=== PATIENT | female | born 1950 | race Caucasian/White ===

== ENCOUNTER → 2017-04-04 | Outpatient (CLI) | payer OTHER ==
[~2017-04-04] MED LIST: Ambien PO; CELEBREX200 MG PO; CELEXA10 M1 PO; Citracal Maximum (Ca PO; Ditropan XL PO; KAPIDEX60 MG PO; LISINOPRIL5 MG PO; Levothroid,Synthroid PO; NORCO 5/3251 TABLET PO; OMEPRAZOLE40 M1 PO; PREMARIN0.625 MG PO; REGLAN10 MG; VITAMIN C WIT1000 MG PO; ValTRex PO; Xanax PO; Zocor PO; celeXA PO
== END | disposition home or self-care (01) ==
DX: M17.11 Unilateral primary osteoarthritis, right knee (principal); R26.2 Difficulty in walking, not elsewhere classified; M25.561 Pain in right knee; M25.661 Stiffness of right knee, not elsewhere classified; M62.81 Muscle weakness (generalized)
CPT/HCPCS: 97110 GP; 97150 GO; 97161 GP; 97165 GO; G8978 GP; G8979 GP; G8980 GP; G8987 GO; G8988 GO; G8989 GO

== ENCOUNTER 2017-05-07 22:05 | Inpatient (IN) | payer OTHER ==
[~2017-05-07] VITALS: Ht 162.6 cm; Wt 76.5 kg
[~2017-05-07 22:05] MED LIST changes: +DIOVAN HCT 81 TABLET PO; +DITROPAN XL15 MG PO; +ESTRACE1 MG PO; +IRON325 M1 PO; +ONE DAILY WOME1 EACH PO; +SYNTHROID25 MCG PO; +VALTREX50 MG/ML PO; +VITAMIN D31000 UNI2 PO; +XANAX0.5 MG PO; +ZOCOR40 MG PO
[2017-05-08 07:13] VITALS: BP 133/66
[2017-05-08 12:40] VITALS: BP 136/64
[2017-05-08 12:44] LABS: HEMATOCRIT 36.3 % (36.0-46.0); MCH 29.5 PG (29.0-34.0); MCHC 33.3 G/DL (30.0-36.0); MCV 88.5 FL (83-99); MEAN PLAT.VOLUME 10.4 uM^3 (9.5-12.4); PLATELET COUNT 169 K/uL (156-360); RBC DIS.WIDTH-CV 12.4 % (11.8-14.6); RBC DIS.WIDTH-SD 40.4 % (39-53)
[2017-05-08 12:49] VITALS: BP 136/64
[2017-05-08 16:09] VITALS: BP 130/59
[2017-05-08 20:13] VITALS: BP 147/65
[2017-05-08 23:19] VITALS: BP 141/63
[2017-05-09 07:26] LABS: HEMATOCRIT 34.2 % (36.0-46.0); MCV 87.5 FL (83-99)
[2017-05-09 07:48] LABS: ANION GAP 12 MEQ/L (2-14); CHLORIDE 101 MEQ/L (99-109); GFR ESTIMATE (CALCULATED) > 59 mL/min/; GLUCOSE 129 mg/dL (70-99); POTASSIUM 3.2 MEQ/L (3.7-5.4); SAMPLE HEMOLYSIS CHECK 0; SAMPLE ICTERIC CHECK 0; SAMPLE LIPEMIA CHECK 0; SODIUM 138 MEQ/L (136-147); UREA NITROGEN (BUN) 9 mg/dL (9-23)
[2017-05-09 08:43] VITALS: BP 145/69
[2017-05-09 16:50] VITALS: BP 140/63
[2017-05-09 23:20] VITALS: BP 136/62
[2017-05-10 07:00] LABS: HEMATOCRIT 33.6 % (36.0-46.0); MCV 86.4 FL (83-99)
[2017-05-10 07:34] LABS: ANION GAP 9 MEQ/L (2-14); CHLORIDE 100 MEQ/L (99-109); GFR ESTIMATE (CALCULATED) > 59 mL/min/; GLUCOSE 113 mg/dL (70-99); POTASSIUM 3.2 MEQ/L (3.7-5.4); SAMPLE HEMOLYSIS CHECK 0; SAMPLE ICTERIC CHECK 0; SAMPLE LIPEMIA CHECK 0; SODIUM 138 MEQ/L (136-147); UREA NITROGEN (BUN) 8 mg/dL (9-23)
[2017-05-10 08:04] VITALS: BP 148/69
[2017-05-10 15:46] VITALS: BP 133/62
[2017-05-10 23:34] VITALS: BP 142/65
[2017-05-11 08:04] VITALS: BP 112/52
[2017-05-11] MEDS ORDERED: DOCUSATE SODIU100 MG PO (09:15)
[2017-05-11] MEDS ORDERED: LORCET 5-325 M1 EACH PO (09:16)
[2017-05-11] MEDS ORDERED: LOVENOX40 MG/0.4 SC (09:16)
[2017-05-11 10:44] LABS: ANION GAP 5 MEQ/L (2-14); CHLORIDE 102 MEQ/L (99-109); GFR ESTIMATE (CALCULATED) > 59 mL/min/; GLUCOSE 107 mg/dL (70-99); SAMPLE HEMOLYSIS CHECK 0; SAMPLE ICTERIC CHECK 0; SAMPLE LIPEMIA CHECK 0; SODIUM 140 MEQ/L (136-147); UREA NITROGEN (BUN) 13 mg/dL (9-23)
[2017-05-11 10:45] LABS: POTASSIUM 3.9 MEQ/L (3.7-5.4)
== END 2017-05-11 13:17 | DRG 470 ==
LOC: ENRESERV 22:05 → 2SOUTH 05-08 06:44 → 3EAST 05-08 06:44 → 2SOUTH 05-08 08:10 → ENRESERV 05-08 09:17 → 3EAST 05-08 12:35 → 2SOUTH 05-08 14:58 → 3EAST 05-11 13:17
PROVIDERS: Orthopaedic Surgery; Physician Assistant
PROC: 0SRC0J9 Replacement of Right Knee Joint with Synthetic Substitute, Cemented, Open Approach (ICD-10-PCS; principal; 2017-05-08)
DX: M17.11 Unilateral primary osteoarthritis, right knee (principal); F33.9 Major depressive disorder, recurrent, unspecified; R32 Unspecified urinary incontinence; I10 Essential (primary) hypertension; E03.9 Hypothyroidism, unspecified; F41.9 Anxiety disorder, unspecified; K21.9 Gastro-esophageal reflux disease without esophagitis; E87.6 Hypokalemia; K59.00 Constipation, unspecified; Z90.710 Acquired absence of both cervix and uterus; Z82.49 Family history of ischemic heart disease and other diseases of the circulatory system
CPT/HCPCS: 71010; 73560; 80048; 85014; 85018; 85027; 97530 GP; C1713; J0690; J1170; J1650; J2250; J2405; J7030; J7050; Q0175